=== PATIENT | female | born 1965 | race African-American/Black ===

== ENCOUNTER 2016-12-12 14:16 | Emergency (ER) | payer SELFPAY ==
[~2016-12-12] VITALS: Ht 154.9 cm; Wt 88.5 kg
[2016-12-12 14:26] VITALS: BP 145/85
[2016-12-12] MEDS ORDERED: CYCLOBENZAPRINE 10 MG TABLET. PO ONE (15:00)
[2016-12-12] MEDS ORDERED: CYCL10TA2 PO (15:02)
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
== END 2016-12-12 15:08 | disposition home or self-care (01) ==
LOC: ER 14:16
DX: M54.6 Pain in thoracic spine (principal); V87.7XXA Person injured in collision between other specified motor vehicles (traffic), initial encounter; Y93.89 Activity, other specified; Y92.89 Other specified places as the place of occurrence of the external cause; Y99.8 Other external cause status
CPT/HCPCS: 99283